=== PATIENT | male | born 1995 ===

== ENCOUNTER 2017-01-04 19:23 | Emergency (ER) | payer SELFPAY ==
[~2017-01-04] VITALS: Ht 177.8 cm; Wt 109.2 kg
[2017-01-04 19:26] VITALS: Ht 177.8 cm; Wt 109.2 kg
[2017-01-04] MEDS ORDERED: SODIUM CHLORIDE 0.9% 1000ML 1,000 ML IV ONE (19:33)
[2017-01-04] MEDS ORDERED: SODIUM CHLORIDE 0.9% 1000ML 1,000 ML IV STA (19:33)
[2017-01-04 19:35] VITALS: O2SAT 93
--- NOTE | 2017-01-04 19:47 | EMERGENCY ROOM VISIT NOTE ---
History Report prepared by [place]: Chuck Bales Under the Supervision of: Dr. Navdeep Chiang M.D. First contact with patient: 19:24 Chief Complaint: FOOD BOLUS Stated Complaint: FOOD BOLUS History of Present Illness The patient is a 21 year old male who presents to the Emergency Room who complains of a food bolus stuck in his throat beginning prior to arrival. EMS states that the patient was given Glucagon, Zofran, and Ativan in route. They report that the patient was not in respiratory distress when he was found. The patient states that he was eating roast beef when all of a sudden he could not breath. He reports that he was given the Heimlich, and a little piece came up that allowed him to speak and breath. The patient states that he had 10-12 beers at a wedding prior to arrival. He notes that he has been dry heaving, but nothing is coming up. The patient reports that it is feels like the food bolus is still stuck. He states that he can spit, but he can not drink anything without vomiting. The patient denies fevers, back pain, rash, hives, being seen by a GI doctor before, and smoking. Source of History: patient Onset: prior to arrival Position: throat Quality: other (food bolus) Modifying Factors (Worsening): drinking Associated Symptoms: + SOB, + vomiting, No fevers, No back pain, No rash Review of Systems See HPI for pertinent positives & negatives. A total of 10 systems reviewed and were otherwise negative. Past Medical & Surgical Old medical records were reviewed. Nurse's notes were reviewed and I agree with. Family History Patient reports no known family medical history. Social History Smoking Status: Never Smoker Marital Status: in relationship Current/Historical Medications Scheduled Pantoprazole (Protonix), 40 MG PO DAILY Prednisone (Prednisone), Unknown Dose PO DAILY/UD Allergies Coded Allergies: No Known Allergies (Unverified , 01/04/17) Physical Exam Vital Signs Date Time Temp Pulse Resp B/P (MAP) Pulse Ox O2 Delivery O2 Flow Rate FiO2 01/04/17 22:23 37.1 82 26 136/93 94 01/04/17 22:16 82 30 94 01/04/17 22:11 87 25 94 01/04/17 22:06 83 25 93 01/04/17 22:01 86 30 136/93 94 01/04/17 21:56 84 28 94 01/04/17 21:51 92 30 94 01/04/17 21:46 90 26 95 01/04/17 21:41 88 28 94 01/04/17 21:36 88 30 94 01/04/17 21:31 86 29 139/78 94 01/04/17 21:26 93 31 94 01/04/17 21:21 95 28 94 01/04/17 21:16 90 19 93 01/04/17 21:11 104 21 94 01/04/17 21:06 107 29 93 01/04/17 21:02 162/90 01/04/17 21:01 104 35 92 01/04/17 20:56 112 20 93 01/04/17 20:51 99 15 93 01/04/17 20:46 103 16 94 01/04/17 20:41 104 24 93 01/04/17 20:36 103 25 95 01/04/17 20:31 136/74 01/04/17 20:28 110 27 93 01/04/17 20:23 104 16 96 01/04/17 20:18 104 31 163/90 95 01/04/17 20:13 112 12 95 01/04/17 20:08 108 18 94 01/04/17 20:03 112 22 94 01/04/17 19:58 106 24 93 01/04/17 19:53 103 18 94 01/04/17 19:48 101 27 93 01/04/17 19:43 110 26 93 01/04/17 19:38 110 27 93 01/04/17 19:37 110 01/04/17 19:35 93 Room Air 01/04/17 19:26 37.1 113 18 149/97 95 Room Air 01/04/17 19:26 149/97 Physical Exam General: Non-ill appearing, young male, no distress, spitting up saliva HEENT: Normal cephalic atraumatic. Pupils are equal round and reactive to light. Extraocular movements are intact. Oropharynx is pink with moist mucous membranes. No swelling of the mouth lips or tongue. Neck: Supple with a midline trachea. No meningeal signs or stiffness, no JVD or bruits. No Stridor. Chest: No wheezes. Rhonchi that clears with coughing. No increased work of breathing. Heart: regular rate and rhythm. Abdomen: Soft nontender, nondistended without rebound guarding or rigidity. Extremities: No cyanosis clubbing or edema. No calf tenderness or assymetry Spine/Back. Non tender to palpation. No CVA tenderness Skin: Good turgor without rashes. Neurologic exam: Cranial nerves two through 12 are intact. Motor and sensation are intact and symmetrical throughout. Minimally intoxicated. Medical Decision & Procedures ER Provider Diagnostic Interpretation: X-ray results as stated below per interpretation by me and the radiologist: CHEST ONE VIEW PORTABLE CLINICAL HISTORY: CHEST PAIN dyspnea COMPARISON STUDY: No previous studies for comparison. FINDINGS: The bones soft tissues and hemidiaphragms are normal. The cardiomediastinal silhouette is normal. The lungs are clear. The pulmonary vasculature is normal. IMPRESSION: Negative chest. Electronically signed by: Isaiah Driscoll M.D. 01/04/2017 8:25 PM Dictated Date/Time: 01/04/2017 8:24 PM Chest x-ray per my interpretation reveals no pneumothorax, failure, or infiltrate. Laboratory Results 01/04/17 19:43 Red Blood Count 4.44, Mean Corpuscular Volume 93.0, Mean Corpuscular Hemoglobin 32.7, Mean Corpuscular Hemoglobin Concent 35.1, Mean Platelet Volume 10.5, Neutrophils (%) (Auto) 73.9, Lymphocytes (%) (Auto) 20.7, Monocytes (%) (Auto) 4.9, Eosinophils (%) (Auto) 0.2, Basophils (%) (Auto) 0.1, Neutrophils # (Auto) 6.03, Lymphocytes # (Auto) 1.69, Monocytes # (Auto) 0.40, Eosinophils # (Auto) 0.02, Basophils # (Auto) 0.01 01/04/17 19:43 Test 01/04/17 19:43 White Blood Count 8.17 K/uL (4.8-10.8) Red Blood Count 4.44 M/uL (4.7-6.1) Hemoglobin 14.5 g/dL (14.0-18.0) Hematocrit 41.3 % (42-52) Mean Corpuscular Volume 93.0 fL (80-100) Mean Corpuscular Hemoglobin 32.7 pg (25-34) Mean Corpuscular Hemoglobin Concent 35.1 g/dl (32-36) Platelet Count 269 K/uL (130-400) Mean Platelet Volume 10.5 fL (7.4-10.4) Neutrophils (%) (Auto) 73.9 % Lymphocytes (%) (Auto) 20.7 % Monocytes (%) (Auto) 4.9 % Eosinophils (%) (Auto) 0.2 % Basophils (%) (Auto) 0.1 % Neutrophils # (Auto) 6.03 K/uL (1.4-6.5) Lymphocytes # (Auto) 1.69 K/uL (1.2-3.4) Monocytes # (Auto) 0.40 K/uL (0.11-0.59) Eosinophils # (Auto) 0.02 K/uL (0-0.5) Basophils # (Auto) 0.01 K/uL (0-0.2) RDW Standard Deviation 43.5 fL (36.4-46.3) RDW Coefficient of Variation 12.8 % (11.5-14.5) Immature Granulocyte % (Auto) 0.2 % Immature Granulocyte # (Auto) 0.02 K/uL (0.00-0.02) Anion Gap 12.0 mmol/L (3-11) Est Creatinine Clear Calc Drug Dose 156.2 ml/min Estimated GFR () 137.2 Estimated GFR (Non- 118.4 BUN/Creatinine Ratio 10.1 (10-20) Calcium Level 8.1 mg/dl (8.5-10.1) Laboratory studies as stated above per my review. Medications Administered Medications (Trade) Dose Ordered Sig/Yessi Route Start Time Stop Time Status Last Admin Dose Admin Sodium Chloride 1,000 ml @ 999 mls/hr Q1H1M STAT IV 01/04/17 19:33 01/04/17 20:33 DC 01/04/17 19:33 999 MLS/HR Sodium Chloride 1,000 ml @ 150 mls/hr Q6H40M ONCE IV 01/04/17 19:33 01/04/17 22:37 DC 01/04/17 19:33 150 MLS/HR Pantoprazole Sodium (Protonix Tab) 40 mg NOW STAT PO 01/04/17 21:44 01/04/17 21:45 DC 01/04/17 21:52 40 MG ED Course 1926: Past medical records reviewed. The patient was evaluated in room B08, and a complete history and physical examination were performed. 1932: Ordered Sodium Chloride 1000 ml @ 999 mls/hr IV, Sodium Chloride 1000 ml @ 150 mls/hr IV 2000: I reevaluated the patient, and he is still spitting up saliva. 2012: I discussed the patient's case with NATHALY Ling. The patient will be evaluated for further treatment. 2103: I reevaluated the patient, and he vomited up a small amount of meat. He is no longer drools. He is able to drink fluids, and it does not feel like anything is stuck. 2109: I updated NATHALY Ling of the patient's reevaluation. She agrees with not seeing the patient, and he should follow up as an outpatient. 2143: Ordered Protonix Tab 40mg PO 2144: I reevaluate the patient, and he is back to baseline. His lungs are clear , and he would like to go home. I discussed his exam findings and the discharge instructions. He verbalized complete understanding, and he was discharged home. Medical Decision Differential diagnosis includes: food bolus, aspiration, alcoholic intoxication , infection. Medication Reconciliation: I attest that I have personally reviewed the patient' s current medication list. He is not taking any medications. Blood Pressure Screening: Patient was found to have a slightly elevated blood pressure due to circumstances. I do not believe that the patient requires hypertension monitoring. This patient comes in as described above he comes in with symptoms consistent with food bolus was at a wedding today did have some alcohol ingestion as well as her does not appear to be significantly intoxicated. He had an where he was choking and he did receive Heimlich and he was very anxious when the paramedics arrived. He did get prehospital ALS command by Dr. Quiroz and received IV glucagon, IV Ativan, IV Zofran. He looks well on my exam except for he keeps spitting up his secretions intermittently and it is clear and nonbloody .he appears in no respiratory distress. Chest x-ray and blood work was obtained. Chest x-ray does not show any pneumothorax or any definite aspiration. His blood work and electrolytes were unremarkable. I did consult Donita from GI to come see the patient for endoscopy for food bolus. While the patient was waiting to be seen, he had an episode where he threw up some meat and then felt better. He said it felt like it moved and was able drink fluids and looks great he feels back at his baseline he was further observed in the ER called back and let her know. She recommended started on a proton pump inhibitor and have him follow-up with a GI specialist when he gets home. He was given Protonix here as well as a prescription for Protonix. I told ensure that he eats small bites of food and return if he has increasing pain, recurrence of symptoms ,shortness of breat,h problems swallowing , any new problems concerns. He is happy with plan and discharged home. Consults Time Called: 2001 Consulting Physician: NATHALY Ling Returned Call: 2012 I discussed the patient's case with NATHALY Ling. The patient will be evaluated for further treatment. 2109: I updated NATHALY Ling of the patient's reevaluation. She agrees with not seeing the patient, and he should follow up as an outpatient. Impression Primary Impression: Esophageal foreign body Scribe Attestation The scribe's documentation has been prepared under my direction and personally reviewed by me in its entirety. I confirm that the note above accurately reflects all work, treatment, procedures, and medical decision making performed by me. Departure Information Dispostion Home / Self-Care Prescriptions Pantoprazole (Protonix) 40 Mg Tab 40 MG PO DAILY, #14 TAB Prov: Navdeep Chiang M.D. 01/04/17 Referrals No Doctor, Assigned (PCP) Forms HOME CARE DOCUMENTATION FORM, IMPORTANT VISIT INFORMATION, WORK / SCHOOL INSTRUCTIONS Patient Instructions My [facility] [email or web address] Additional Instructions Rest Drink plenty of fluids. Mild diet. Do not eat bulky food ensure that your food is adequately chewed before swallowing Use Protonix 40 mg a day for the next 2 weeks. Follow-up with the GI specialist or your primary doctor when he at home. You had a food bolus and will likely need endoscopy to look at this to ensure there is no underlying stricture or problem Return to the ER if: Recurrence of symptoms, fever or chills, cough, not tolerating fluids or liquids, any new problems or concerns
[2017-01-04 19:52] LABS: BASO % 0.1 %; BASO ABS # 0.01 K/uL (0-0.2); COMPLETE YES; EOS % 0.2 %; HEMATOCRIT 41.3 % (42-52); IG% 0.2 %; LYMPH % 20.7 %; LYMPH ABS # 1.69 K/uL (1.2-3.4); MEAN CORPUSCULAR HEMOGLOBIN 32.7 pg (25-34); MEAN CORPUSCULAR HGB CONC 35.1 g/dl (32-36); MEAN PLATELET VOLUME 10.5 fL (7.4-10.4); MONO % 4.9 %; NEUT % 73.9 %; PLATELET COUNT 269 K/uL (130-400); RED BLOOD COUNT 4.44 M/uL (4.7-6.1); WHITE BLOOD COUNT 8.17 K/uL (4.8-10.8)
[2017-01-04] MEDS ORDERED: PRED10TA PO (19:52)
[2017-01-04 20:14] LABS: BUN/CREATININE RATIO 10.1 (10-20); CALCIUM 8.1 mg/dl (8.5-10.1); CREATININE 0.91 mg/dl (0.60-1.40); POTASSIUM 3.2 mmol/L (3.5-5.1)
--- NOTE | 2017-01-04 20:26 | DIAGNOSTIC IMAGING REPORT ---
CHEST ONE VIEW PORTABLE CLINICAL HISTORY: CHEST PAIN dyspnea COMPARISON STUDY: No previous studies for comparison. FINDINGS: The bones soft tissues and hemidiaphragms are normal. The cardiomediastinal silhouette is normal. The lungs are clear. The pulmonary vasculature is normal. IMPRESSION: Negative chest. Electronically signed by: Isaiah Driscoll M.D. 01/04/2017 8:25 PM Dictated Date/Time: 01/04/2017 8:24 PM
[2017-01-04] MEDS ORDERED: PANTOprazole SOD 40 MG TAB PO STA (21:44)
[2017-01-04] MEDS ORDERED: PANT40TA PO (21:47)
[2017-01-04 22:23] VITALS: BP 136/93; PULSE 82; TEMP 37.1; O2SAT 94
== END 2017-01-04 22:25 | disposition home or self-care (01) ==
LOC: C.EDB 19:25
DX: T18.108A Unspecified foreign body in esophagus causing other injury, initial encounter (principal); X58.XXXA Exposure to other specified factors, initial encounter